=== PATIENT | male | born 2000 | race Caucasian/White ===

== ENCOUNTER 2024-04-21 08:55 | Emergency (ER) | payer OTHER, SELFPAY ==
--- NOTE | ~2024-04-21 | XR_ITS ---
XR elbow RT min 3V DATE: 04/21/2024 09:29 INDICATION: Fall. Right elbow pain, limited range of motion TECHNIQUE: 4 views COMPARISON: None FINDINGS: There is a transverse nondisplaced radial neck fracture. No other fracture or dislocation. Elbow joint effusion. IMPRESSION: Virtually nondisplaced transverse radial neck fracture Reviewed, dictated and finalized at location A. ER COMPRESSED GASES
--- NOTE | ~2024-04-21 | XR_ITS ---
XR forearm RT 2V DATE: 04/21/2024 09:29 INDICATION: Fall. Right elbow and forearm pain, limited range of motion TECHNIQUE: AP and lateral views COMPARISON: None FINDINGS: Transverse oriented nondisplaced radial neck fracture. No other fracture or dislocation of the radius or ulna. Normal alignment of the elbow and wrist joint s. IMPRESSION: Radial neck fracture Reviewed, dictated and finalized at location A. NG [facility]EWARD IMPRESSION: Radial neck fracture
[2024-04-21 08:55] VITALS: BP 128/93; PULSE 85; RESP 18; TEMP 36.9; O2SAT 100
--- NOTE | 2024-04-21 09:10 | ED.UPPEXIN ---
HPI - Extremity Injury (Upper) General Chief Complaint: Extremity Injury, Upper Stated Complaint: right arm injury Time Seen by Provider: 04/21/24 09:04 Source: patient and family Mode of arrival: ambulatory Limitations: no limitations History of Present Illness HPI narrative: this is a 24-year-old male that presents with right elbow injury after he fell on a patch of ice while at work has good range of motion although limited secondary to pain. No other injuries noted tenderness with palpation of the right elbow has a brisk radial pulse on the right. MD complaint: injury to: right Onset (ago): minute(s) Other Extremity Injury: Right: elbow ( elbow pain with swelling) Other injuries: none Handedness: right Place: work Severity: moderate Severity scale (1-10): 7 Relieving factors: cold therapy and immobilization Exacerbating factors: movement of extremity Related Data Allergies Allergy/AdvReac Type Severity Reaction Status Date / Time Penicillins Allergy Intermediate Rash Verified 04/21/24 09:10 Review of Systems Review of Systems: All systems reviewed & are unremarkable except as noted in HPI and below PMFSH Past Medical History Medical History Patient denies medical problems Exam Const: General: healthy appearing and no acute distress Nutritional Appearance: well nourished Orientation/consciousness: patient oriented x3 Limitations: no limitations Resp: Effort & Inspection: normal respiratory effort Auscultation: clear to auscultation bilaterally Cardio: Rate: regular rate Rhythm: regular rhythm Skin: General skin exam: normal color Rashes: no rashes Wounds: no wounds Neuro: General: patient oriented x3, moves all extremities and no meningeal signs Extrem: Other: point tenderness to the right elbow with palpation Course Course Emergency Course: patient received 60mg IM Toradol and x-ray performed and reviewed of the elbow and forearm shows a radial neck fracture nondisplaced spoke with orthopedist to schedule outpatient appointment with patient. Vital Signs Vital signs: Vital Signs Temperature 36.9 C 04/21/24 08:55 Pulse Rate 85 04/21/24 08:55 Respiratory Rate 18 04/21/24 08:55 Blood Pressure 128/93 H 04/21/24 08:55 Pulse Oximetry 100 04/21/24 08:55 Oxygen Delivery Room Air 04/21/24 08:55 Temperature 36.9 C 04/21/24 08:55 Pulse Rate 85 04/21/24 08:55 Respiratory Rate 18 04/21/24 08:55 Blood Pressure 128/93 H 04/21/24 08:55 Pulse Oximetry 100 04/21/24 08:55 Oxygen Delivery Room Air 04/21/24 08:55 Critical Care Time Critical Care Time Critical Care Time: No Discharge Plan Discharge Clinical Impression: Elbow fracture, right Qualifiers: Encounter type: initial encounter Fracture type: closed Qualified Code(s): S42.401A - Unspecified fracture of lower end of right humerus, initial encounter for closed fracture Patient Disposition: Home, Self-Care Condition: Stable Instructions: Antibiotic Form, Elbow Fracture (ED) Additional Instructions: advised to take medication as prescribed and follow-up with orthopedics as scheduled. Patient Language: Yakut Prescriptions: New tramadol 50 mg tablet 50 mg PO Q6H PRN (Reason: pain) Qty: 14 0RF Follow-up/Referrals: Chris Eastman M.D. [Primary Care Provider] - Stand Alone Forms: Work/School Release IP Time of Disposition: 10:11
[2024-04-21] MEDS: KETOROLAC (*BKC) 60 MG/2 ML VIAL IM (09:52)
[2024-04-21 10:35] VITALS: BP 131/86; PULSE 88; RESP 16; TEMP 37.1; O2SAT 97
== END 2024-04-21 10:35 | disposition home or self-care (01) ==
PROVIDERS: Emergency Provider Emergency Medicine; PCP Family Medicine
DX: S52.134A Nondisplaced fracture of neck of right radius, initial encounter for closed fracture (principal); W00.0XXA Fall on same level due to ice and snow, initial encounter; Y92.9 Unspecified place or not applicable; Y99.0 Civilian activity done for income or pay
CPT/HCPCS: 29105; 73080; 73090; 96372; 99284; A4565; J1885

== ENCOUNTER 2024-07-18 12:08 | Emergency (ER) | payer SELFPAY ==
--- NOTE | ~2024-07-18 | XR_ITS ---
EXAM/ PROCEDURE: XR lumbar spine 2-3V - 07/18/2024 12:16 CDT HISTORY: 24 years old Male with low back pain possible pulled muscle NKI COMPARISON: None available TECHNIQUE: Four view(s) FINDINGS/ IMPRESSION: There are no fractures or dislocations.Intervertebral disc spaces are within normal limits. Reviewed, dictated and finalized at location A.
[2024-07-18 12:08] VITALS: BP 124/78; PULSE 88; RESP 18; TEMP 36.6; O2SAT 93
--- NOTE | 2024-07-18 12:14 | ED_ITS ---
HPI - Back Pain/Injury General Chief Complaint: Back Pain/Injury Stated Complaint: lower back pain Time Seen by Provider: 07/18/24 12:14 Source: patient Mode of arrival: ambulatory Limitations: no limitations History of Present Illness HPI Narrative: 24-year-old male with recent right elbow fracture presents to the ED with a 1 day history of -- low back pain. No history of trauma. Patient got up and noted that he had severe low back pain. No radiation of the pain. No paresthesias or motor loss in both lower extremities. No bladder or bowel involvement. no fever or chills. MD elicited complaint: back pain Pertinent past history: prior back pain Onset (ago): day(s) ( One day) Timing: constant Similar Symptoms Previously: No Quality: aching Location: lumbar spine Radiation: none Exacerbating factors: movement Relieving factors: immobilization Associated symptoms: denies other symptoms Related Data Allergies Allergy/AdvReac Type Severity Reaction Status Date / Time Penicillins Allergy Intermediate Rash Verified 07/18/24 12:12 Review of Systems Review of Systems: All systems reviewed & are unremarkable except as noted in HPI and below PMFSH Past Medical History Medical History Patient denies medical problems Social History Social History Smoking status: Unknown if ever smoked Do You Feel Safe in your Home?: Yes Lack of Transportation: No Lack of Food: Sometimes True Current Housing: I Have Housing Concerned About Future Housing: No Difficulty Paying Gas/Electric Bills: No Difficulty Paying for Meds: No Currently Unemployed: No Education: High School Diploma/GED Difficulty w/ Childcare or Family Care: No Exam Narrative: Vitals are stable. Const: General: healthy appearing and no acute distress Orientation/consciousness: patient oriented x3 HENMT: Head: normal to inspection Ears: external ears normal Face/Nose/Sinus: Normal external nose present Face and sinus: normal facial exam Mouth: Yes Normal oral and palatal mucosa present Throat: posterior o ropharynx normal Eyes: Conjunctivae: conjunctivae normal Pupils: Equal, round and reactive pupils present EOM: EOMs intact bilaterally Direct Ophthalmoscopy: no photophobia Neck: Neck: normal visual inspection, no lymphadenopathy and no meningeal signs Chest: Chest palpation & inspection: normal inspection of the chest Resp: Effort & Inspection: normal respiratory effort Auscultation: clear to auscultation bilaterally Cardio: Rate: regular rate Rhythm: regular rhythm GI: Auscultation: normal bowel sounds Other: No tenderness/ rigidity / rebound. : General: Yes no CVA tenderness Back/Spine/Pelvis: Back: no CVA tenderness Other: No spinal tenderness noted. Low back pain in the region of the lumbar spine. SLR negative no motor or sensory loss lower extremities Skin: General skin exam: normal color Rashes: no rashes Wounds: no wounds Neuro: General: patient oriented x3, moves all extremities, no meningeal signs, no focal motor deficits and CN's II-XI intact bilaterally Speech: normal speech Extrem: General: normal to inspection and no clubbing, cyanosis or edema Psych: Mental Status: mental status grossly normal Affect: normal affect Course Course Emergency Course: low back pain-- x-ray did not show any acute findings. Patient received Toradol. Vital Signs Vital signs: Vital Signs Temperature 36.6 C 07/18/24 12:08 Pulse Rate 88 07/18/24 12:08 Respiratory Rate 18 07/18/24 12:08 Blood Pressure 124/78 07/18/24 12:08 Pulse Oximetry 93 07/18/24 12:08 Oxygen Delivery Room Air 07/18/24 12:08 Temperature 36.6 C 07/18/24 12:08 Pulse Rate 88 07/18/24 12:08 Respiratory Rate 18 07/18/24 12:08 Blood Pressure 124/78 07/18/24 12:08 Pulse Oximetry 93 07/18/24 12:08 Oxygen Delivery Room Air 07/18/24 12:10 MDM - Back Pain/Injury MDM Narrative Medical decision making narrative: Low back pain Differential Diagnosis Differential diagnosis: Likely lumbar radiculopathy and strain of lumbar region Discharge Plan Discharge Clinical Impression: Acute low back pain Patient Disposition: Home Condition: Stable Instructions: Antibiotic Form, Acute Low Back Pain (ED) Patient Language: Polish Prescriptions: No Action celecoxib 200 mg capsule 200 mg PO DAILY Qty: 90 0RF tramadol 50 mg tablet 50 mg PO Q6H PRN (Reason: pain) Qty: 30 0RF Follow-up/Referrals: Chris Eastman M.D. [Primary Care Provider] - Time of Disposition: 12:55
[2024-07-18] MEDS: KETOROLAC 30 MG/ML VIAL (*BKC) IM (12:41)
--- NOTE | 2024-07-18 13:28 | PC.NURSE ---
PT IS HAVING DIFFICULTY SITTING UP ON STRETCHER, REPORTING THE PAIN IS SHOOTING ACROSS HIS BACK AND IS TIGHT. ERP HAS BEEN NOTIFIED, AWAITING ORDERS.
[2024-07-18] MEDS: LIDOCAINE 5% PATCH 1 PATCH TRANSDERM (13:39)
[2024-07-18 13:45] VITALS: BP 138/70; PULSE 72; RESP 18; TEMP 36.7; O2SAT 99
== END 2024-07-18 13:45 | disposition home or self-care (01) ==
PROVIDERS: Emergency Provider Internal Medicine Critical Care Medicine; PCP Family Medicine
DX: M54.50 Low back pain, unspecified (principal)
CPT/HCPCS: 72100; 96372; 99283; A9270; J1885

== ENCOUNTER 2024-08-18 11:06 | Outpatient (CLI) | payer OTHER, SELFPAY ==
--- NOTE | ~2024-08-18 | MR_ITS ---
MRI of the right elbow CLINICAL HISTORY: Radial neck fracture TECHNIQUE: Proton-density and proton-density fat-sat images were acquired in the axial, coronal, and sagittal planes. FINDINGS: Ulnar collateral ligament is intact. Radial collateral ligament and the lateral ulnar colla teral ligament are intact. Common extensor and common flexor tendon origins are intact. No fracture or dislocation seen. Bone marrow signals are unremarkable. Possible healed fracture defor mity the radial head/neck. There is minimal elbow joint effusion. Otherwise, no articular abnormality of the elbow joint identified. Biceps, brachialis, and triceps tendons are intact. Visualized muscle bellies intact. No soft tissue mass or fluid collection. IMPRESSION: Minimal elbow joint effusion, nonspecific. No other significant findings. No acute fracture or disloc ation. Possible healed fracture deformity of the radial head/neck. Reviewed, dictated and finalized at [facility]. IMPRESSION: Minimal elbow joint effusion, nonspecific. No other significant findings. No ac alma rosa fracture or dislocation. Possible healed fracture deformity of the radial head/neck.
== END 2024-08-18 11:07 | disposition home or self-care (01) ==
PROVIDERS: PCP Family Medicine; Visit Provider Orthopaedic Surgery
DX: S52.134A Nondisplaced fracture of neck of right radius, initial encounter for closed fracture (principal); M25.421 Effusion, right elbow; X58.XXXA Exposure to other specified factors, initial encounter
CPT/HCPCS: 73221